=== PATIENT | male | born 1990 | race Caucasian/White ===

== ENCOUNTER 2022-01-12 21:15 | Inpatient (IN) ==
[2022-01-13] MEDS ORDERED: Ondansetron ODT 4 MG TAB.RAPDIS SL PRN (01:10)
[2022-01-13] MEDS ORDERED: Naloxone 0.4 MG/ML INJ IVP PRN (01:10)
[2022-01-13] MEDS ORDERED: Acetaminophen 325 MG TABLET PO PRN (01:10)
[2022-01-13] MEDS: *HR* OxyCODONE Immed Rel 5 MG TABLET PO PRN ×3 (02:22→23:03)
[2022-01-13 02:30] LABS: Basophils % 0.5 %; Eosinophils # 0.2 K/mcL (0.0-0.6); Eosinophils % 2.7 %; Hematocrit 31.3 % (37.5-50.1); Hemoglobin 10.1 g/dL (12.9-16.9); Immature Granulocytes % 0.4 % (0-4); Lymphocytes # 1.5 K/mcL (0.6-4.6); Lymphocytes % 18.5 %; Mean Corpuscular HGB Conc 32.3 g/dL (31.6-35.5); Mean Corpuscular Hemoglobin 29.1 pg (28.0-33.3); Mean Corpuscular Volume 90.2 fL (83.0-100.0); Mean Platelet Volume 10.1 fL (9.4-12.4); Monocytes # 0.9 K/mcL (0.0-1.3); Monocytes % 10.6 %; Neutrophils # 5.5 K/mcL (1.6-8.9); Platelet Count 331 K/mcL (140-400); Red Blood Count 3.47 M/mcL (4.19-5.50); Red Cell Distribution Width 13.5 % (11.5-14.5); Segmented Neutrophils % 67.3 %; White Blood Count 8.2 K/mcL (4.3-11.1)
[2022-01-13 02:40] LABS: Calcium 8.3 mg/dL (8.6-10.3); Magnesium 1.9 mg/dL (1.6-2.6); Phosphorous 4.6 mg/dL (2.7-4.5); Potassium 4.5 mEq/L (3.5-5.1)
[2022-01-13] MEDS ORDERED: Albumin 25% 25gram/100mL 25 GM/100 ML IV.SOLN IVPB ONE (05:30)
[2022-01-13] MEDS ORDERED: Furosemide 40 MG/4 ML VIAL IVP ONE (05:30)
[2022-01-13] MEDS ORDERED: Perflutren Lipid Microsphere 1.3 ML in 0.9 % Sodium Chloride 8.7 ML IVP PRN (05:32)
[2022-01-13] MEDS ORDERED: *HR* Dextrose 50 % in Water (Syg) 50 ML SYRINGE IVP PRN (05:38)
[2022-01-13] MEDS ORDERED: Dextrose 4 GM Chewable Tablets PO PRN ×2 (05:38)
[2022-01-13] MEDS ORDERED: D5% in Water 1,000 ML IVC PRN (05:38)
[2022-01-13] MEDS ORDERED: Piperacillin/Tazobactam 3.375 GM in 0.9 % Sodium Chloride Mini Bag 100 ML IVPB SCH (06:00)
[2022-01-13] MEDS ORDERED: Insulin LISPRO 300 UNITS/3 ML VIAL SUBQ SCH (06:00)
[2022-01-13] MEDS: *HR* Heparin 5,000 UNIT/ML VIAL SQ SCH ×3 (06:03→21:27)
[2022-01-13] MEDS ORDERED: 0.9 % Sodium Chloride 1,000 ML IVC SCH (08:00)
[2022-01-13] MEDS ORDERED: Vancomycin 1,750 MG/517.5 ML IV.SOLN IVPB SCH (09:00)
[2022-01-13 11:05] LABS: Bacteria,Urine Few per hpf (None-Few); Bilirubin,Urine Negative (Negative); Blood,Urine Small (Negative); Clarity,Urine Clear (Clear); Color,Urine Light-Yellow (Yellow); Glucose,Urine (UA) 150 mg/dL (Normal); Ketones,Urine Negative (Negative); Leukocyte Esterase,Urine Negative (Negative); Mucus,Urine Few per lpf (None-Few); Nitrite,Urine Negative (Negative); Protein,Urine >=300 mg/dL (Neg-Trace); RBC,Urine 0-3 per hpf (0-3); Specific Gravity,Urine 1.011 (1.010-1.025); Squamous Epithelial Cell,Urine Few per hpf (None-Few); Urobilinogen,Urine Normal (Normal)
[2022-01-13] MEDS: levoFLOXacin 500 MG/100 ML 500 MG/100 ML BAG IVPB SCH (11:08)
[2022-01-13 11:35] LABS: Protein/Creatinine Ratio,Urine 9.62 mg/mg (0.00-0.20); Sodium, Urine 55.2 mEq/L
[2022-01-13] MEDS: Insulin LISPRO 300 UNITS/3 ML VIAL SUBQ SCH ×2 (13:36→17:31)
[2022-01-13] MEDS: *HR* HYDROcodone/Acet 5/325 mg TABLET PO PRN (16:24)
[2022-01-13] MEDS: Insulin DETEMIR 100 UNIT/ML X5UNITS SUBQ SCH (21:27)
[2022-01-13] MEDS: Metoprolol XL (24 HR) Succ 25 MG TAB.ER.24H PO SCH (21:27)
[2022-01-14] MEDS: *HR* Heparin 5,000 UNIT/ML VIAL SQ SCH ×3 (05:13→21:06)
[2022-01-14 06:56] LABS: Basophils % 0.5 %; Eosinophils # 0.2 K/mcL (0.0-0.6); Eosinophils % 2.7 %; Hematocrit 30.2 % (37.5-50.1); Hemoglobin 9.7 g/dL (12.9-16.9); Immature Granulocytes % 0.3 % (0-4); Lymphocytes # 1.4 K/mcL (0.6-4.6); Lymphocytes % 17.5 %; Mean Corpuscular HGB Conc 32.1 g/dL (31.6-35.5); Mean Corpuscular Hemoglobin 28.7 pg (28.0-33.3); Mean Corpuscular Volume 89.3 fL (83.0-100.0); Monocytes # 0.7 K/mcL (0.0-1.3); Neutrophils # 5.4 K/mcL (1.6-8.9); Platelet Count 351 K/mcL (140-400); Red Blood Count 3.38 M/mcL (4.19-5.50); Red Cell Distribution Width 13.7 % (11.5-14.5); White Blood Count 7.8 K/mcL (4.3-11.1)
[2022-01-14 07:20] LABS: Calcium 8.7 mg/dL (8.6-10.3); Magnesium 1.7 mg/dL (1.6-2.6); Potassium 4.4 mEq/L (3.5-5.1); Uric Acid 9.1 mg/dL (2.3-7.6)
[2022-01-14 07:30] LABS: Thyroid Stimulating Hormone 3.073 mcIU/mL (0.340-5.600)
[2022-01-14] MEDS: Insulin LISPRO 300 UNITS/3 ML VIAL SUBQ SCH ×3 (07:35→16:41)
[2022-01-14] MEDS ORDERED: Albumin 25% 25gram/100mL 25 GM/100 ML IV.SOLN IVPB ONE (08:56)
[2022-01-14] MEDS ORDERED: Furosemide 40 MG/4 ML VIAL IVP ONE (09:30)
[2022-01-14] MEDS: *HR* OxyCODONE Immed Rel 5 MG TABLET PO PRN ×2 (09:57→21:05)
[2022-01-14 10:01] LABS: Complement C3 173 mg/dL (87-200)
[2022-01-14] MEDS: Loratadine 10 MG TABLET PO SCH (10:09)
[2022-01-14] MEDS: Fenofibrate 54 MG TABLET PO SCH (10:10)
[2022-01-14] MEDS: Metoprolol XL (24 HR) Succ 25 MG TAB.ER.24H PO SCH ×2 (10:10→21:05)
[2022-01-14] MEDS: levoFLOXacin 500 MG/100 ML 500 MG/100 ML BAG IVPB SCH (10:12)
[2022-01-14] MEDS: Nystatin Cream 15 GM TUBE TP SCH ×2 (11:20→21:05)
[2022-01-14] MEDS: *HR* HYDROcodone/Acet 5/325 mg TABLET PO PRN (12:58)
[2022-01-14 17:27] LABS: Protein/Creatinine Ratio,Urine 12.75 mg/mg (0.00-0.20); Sodium, Urine 79.8 mEq/L
[2022-01-14 17:35] LABS: Total Volume 24 Hour,Urine 3.72 Liters (0.80-1.80)
[2022-01-14] MEDS: Insulin DETEMIR 100 UNIT/ML X5UNITS SUBQ SCH (21:05)
[2022-01-15] MEDS: *HR* OxyCODONE Immed Rel 5 MG TABLET PO PRN ×2 (04:48→14:50)
[2022-01-15] MEDS: *HR* Heparin 5,000 UNIT/ML VIAL SQ SCH ×2 (04:48→14:39)
[2022-01-15 05:30] LABS: Basophils # 0.1 K/mcL (0.0-0.2); Basophils % 0.7 %; Eosinophils # 0.3 K/mcL (0.0-0.6); Eosinophils % 3.6 %; Hematocrit 32.2 % (37.5-50.1); Hemoglobin 10.2 g/dL (12.9-16.9); Immature Granulocytes % 0.3 % (0-4); Lymphocytes # 1.6 K/mcL (0.6-4.6); Lymphocytes % 22.3 %; Mean Corpuscular HGB Conc 31.7 g/dL (31.6-35.5); Mean Corpuscular Hemoglobin 27.6 pg (28.0-33.3); Mean Platelet Volume 9.7 fL (9.4-12.4); Monocytes # 0.8 K/mcL (0.0-1.3); Neutrophils # 4.5 K/mcL (1.6-8.9); Platelet Count 354 K/mcL (140-400); Red Cell Distribution Width 13.3 % (11.5-14.5); Segmented Neutrophils % 62.1 %; White Blood Count 7.2 K/mcL (4.3-11.1)
[2022-01-15 05:47] LABS: Magnesium 1.6 mg/dL (1.6-2.6); Phosphorous 3.5 mg/dL (2.7-4.5); Potassium 3.9 mEq/L (3.5-5.1)
[2022-01-15] MEDS: Insulin LISPRO 300 UNITS/3 ML VIAL SUBQ SCH ×3 (09:21→16:47)
[2022-01-15] MEDS: Nystatin Cream 15 GM TUBE TP SCH ×2 (09:47→21:09)
[2022-01-15] MEDS: Loratadine 10 MG TABLET PO SCH (09:47)
[2022-01-15] MEDS: Metoprolol XL (24 HR) Succ 25 MG TAB.ER.24H PO SCH ×2 (09:47→21:09)
[2022-01-15] MEDS: Fenofibrate 54 MG TABLET PO SCH (09:47)
[2022-01-15] MEDS: levoFLOXacin 500 MG/100 ML 500 MG/100 ML BAG IVPB SCH (09:47)
[2022-01-15] MEDS: *HR* HYDROcodone/Acet 5/325 mg TABLET PO PRN ×2 (09:55→21:08)
[2022-01-15] MEDS ORDERED: Furosemide 40 MG/4 ML VIAL IVP ONE (12:13)
[2022-01-15] MEDS ORDERED: Albumin 25% 25gram/100mL 25 GM/100 ML IV.SOLN IVPB ONE (12:17)
[2022-01-15] MEDS: Insulin DETEMIR 100 UNIT/ML X5UNITS SUBQ SCH (21:09)
[2022-01-16] MEDS: *HR* Heparin 5,000 UNIT/ML VIAL SQ SCH ×4 (00:32→21:44)
[2022-01-16] MEDS: *HR* OxyCODONE Immed Rel 5 MG TABLET PO PRN ×2 (05:36→21:44)
[2022-01-16 06:10] LABS: Calcium 9.1 mg/dL (8.6-10.3); Potassium 3.6 mEq/L (3.5-5.1)
[2022-01-16] MEDS: Insulin LISPRO 300 UNITS/3 ML VIAL SUBQ SCH ×3 (08:37→18:01)
[2022-01-16] MEDS: Loratadine 10 MG TABLET PO SCH (08:40)
[2022-01-16] MEDS: Metoprolol XL (24 HR) Succ 25 MG TAB.ER.24H PO SCH ×2 (08:40→21:44)
[2022-01-16] MEDS: Fenofibrate 54 MG TABLET PO SCH (08:41)
[2022-01-16] MEDS: levoFLOXacin 500 MG/100 ML 500 MG/100 ML BAG IVPB SCH (08:47)
[2022-01-16] MEDS ORDERED: Furosemide 40 MG/4 ML VIAL IVP SCH (09:00)
[2022-01-16] MEDS ORDERED: Albumin 25% 25gram/100mL 25 GM/100 ML IV.SOLN IVPB SCH (09:00)
[2022-01-16] MEDS: Nystatin Cream 15 GM TUBE TP SCH ×2 (13:13→21:44)
[2022-01-16] MEDS: *HR* HYDROcodone/Acet 5/325 mg TABLET PO PRN (14:23)
[2022-01-16 15:44] LABS: Creatinine,Urine 19 mg/dL; Microalbumin,Urine > 1350 mg/L; Protein/Creatinine Ratio,Urine 17.47 mg/mg (0.00-0.20)
[2022-01-16] MEDS: Insulin DETEMIR 100 UNIT/ML X5UNITS SUBQ SCH (21:43)
[2022-01-17] MEDS: *HR* Heparin 5,000 UNIT/ML VIAL SQ SCH (05:58)
[2022-01-17 07:01] LABS: Albumin 3.1 g/dL (3.5-5.7); Bilirubin,Total 0.3 mg/dL (0.3-1.0); Calcium 9.3 mg/dL (8.6-10.3); Potassium 3.6 mEq/L (3.5-5.1); Total Protein 6.1 g/dL (6.4-8.9)
[2022-01-17] MEDS ORDERED: Furosemide 40 MG TABLET PO SCH (09:00)
[2022-01-17] MEDS ORDERED: levoFLOXacin 500 MG TABLET PO ONE (09:00)
[2022-01-17] MEDS: Loratadine 10 MG TABLET PO SCH (09:21)
[2022-01-17] MEDS: Fenofibrate 54 MG TABLET PO SCH (09:22)
[2022-01-17] MEDS: Metoprolol XL (24 HR) Succ 25 MG TAB.ER.24H PO SCH (09:22)
[2022-01-17 10:48] LABS: ANA IgG by ELISA NONE DETECTED (None Detected); Serine Protease-3 Antibody 1 AU/mL (0-19)
[2022-01-17 11:23] VITALS: BP 160/94; PULSE 83; TEMP 98.5; O2SAT 93
[2022-01-17] MEDS: Insulin LISPRO 300 UNITS/3 ML VIAL SUBQ SCH ×2 (11:25→11:33)
[2022-01-17] MEDS: Nystatin Cream 15 GM TUBE TP SCH (11:33)
== END 2022-01-17 14:16 | disposition home or self-care (01) | DRG 501 ==
LOC: 3ANU → SUATTDRO 01-14 14:23
PROVIDERS: ADMIT Student in an Organized Health Care Education/Training Program; ATTEND Internal Medicine